=== PATIENT | female | born 1950 | race African-American/Black ===

== ENCOUNTER 2025-03-15 22:53 | Emergency (ER) | payer OTHER ==
[~2025-03-15] VITALS: Ht 165.1 cm; Wt 70.3 kg
[2025-03-16] MEDS ORDERED: NA PHOS,M-B/NA PHOS,DI-BA 1 EA ENEMA RC ONE (00:53)
[2025-03-16] MEDS ORDERED: MAGNESIUM CITRATE 296 ML BOTTLE ONE (00:53)
[2025-03-16] MEDS: NA PHOS,M-B/NA PHOS,DI-BA 1 EA ENEMA RC ONE (00:56)
[2025-03-16] MEDS: MAGNESIUM CITRATE 296 ML BOTTLE PO ONE (00:56)
[2025-03-16 01:33] VITALS: BP 145/78; TEMP 98.3; O2SAT 95
== END 2025-03-16 01:33 | disposition home or self-care (01) ==
LOC: ER 22:59
DX: K59.00 Constipation, unspecified (principal); I10 Essential (primary) hypertension; Z88.0 Allergy status to penicillin

== ENCOUNTER 2025-03-16 02:27 | Emergency (ER) | payer OTHER ==
[~2025-03-16] VITALS: Ht 165.1 cm; Wt 70.3 kg
[2025-03-16] MEDS ORDERED: ONDANSETRON HCL/PF 4 MG/2 ML VIAL ONE (02:55)
[2025-03-16] MEDS: IV NS 0.9% 1,000 ML BAG IV ONE (03:39)
[2025-03-16] MEDS: ONDANSETRON HCL/PF 4 MG/2 ML VIAL IVP ONE (03:39)
[2025-03-16 03:44] LABS: PLATELET COUNT (AUTO) 234 K/uL (150-450); RED BLOOD CELL COUNT(AUTO) 4.60 MIL/uL (4.0-5.2); RED CELL DISTRIBUTION WIDTH 14.6 % (11.5-15.0); WHITE BLOOD COUNT (AUTO) 5.8 K/uL (4.3-11.0)
[2025-03-16 03:50] LABS: APPEARANCE,URINE CLEAR (CLEAR); BLOOD, URINE 1+ Ery/uL (NEGATIVE); LEUKOCYTE ESTERASE ,URINE 1+ (NEGATIVE); NITRITE, URINE NEGATIVE (NEGATIVE); UGLUCOSE NEGATIVE (NEGATIVE)
[2025-03-16 03:54] LABS: ADD URINE CULTURE YES; HYALINE CASTS, URINE Rare /LPF (None Seen); SQUAMOUS EPITHELIAL CELL,UR Few /HPF (None Seen)
[2025-03-16 04:33] LABS: ASPARTATE AMINOTRANSFERASE 17 U/L (15-37); CALCIUM, SERUM 8.9 mg/dL (8.5-10.1); CREATININE 0.8 mg/dL (0.6-1.3); SODIUM SERUM 142 mmol/L (136-145); TOTAL PROTEIN, SERUM 7.2 g/dL (6.4-8.2); UREA NITROGEN, BLOOD 11 mg/dL (7-18)
[2025-03-16 04:55] VITALS: BP 110/70; TEMP 98.4; O2SAT 99
== END 2025-03-16 04:56 | disposition home or self-care (01) ==
LOC: ER 02:28
DX: K59.00 Constipation, unspecified (principal); R11.2 Nausea with vomiting, unspecified; I10 Essential (primary) hypertension; Z88.0 Allergy status to penicillin
CPT/HCPCS: 99285; 74176; 96374; 96361; 85025; 80048; 87086; 83690; 80076; 81001; 36415; J2405; J7030